=== PATIENT | male | born 1960 | race Caucasian/White ===

== ENCOUNTER 2019-08-23 19:13 | Inpatient (IN) | payer OTHER, SELFPAY ==
[~2019-08-23] VITALS: Ht 170.2 cm; Wt 81.6 kg
[2019-08-23 19:15] VITALS: BP_SYST 211
--- NOTE | 2019-08-23 19:15 | NUR ---
Patient to ER bed 8 to gown for evaluation. Side rails up. ASSUMED CARE OF PT.
--- NOTE | 2019-08-23 19:15 | NUR ---
PT BIB FOR SOB FOR ONE WEKK BUT IT BECAME WORSE TODAY FOR 30 MANAGEMENT RECRUITER. PT ALSO C/O BILATERAL LOWER EXT EDEMA THAT STARTED ONE WEEK AGO WELL. PT IS AAO AND AMBULATORY. PT SPEAKING IN CLEAR SENTENCES WITHOUT ACCESSARY MUSCLE USE.
--- NOTE | 2019-08-23 21:00 | NUR ---
ER Dr. HOWARD at bedside examining patient.
--- NOTE | 2019-08-23 21:01 | NUR ---
ER at bedside examining patient.
[2019-08-23] MEDS ORDERED: LABETALOL 100 MG/ 20ML VIAL IVP ONE (21:15)
[2019-08-23] MEDS ORDERED: NITROGLYCERIN 1 INCH (GM) OINT. TD ONE (21:15)
[2019-08-23] MEDS ORDERED: ASPIRIN 81 MG TAB.CHEW PO ONE (21:15)
[2019-08-23 22:11] LABS: BASOPHILS % (AUTO) 0.9 % (0.0-2.0); EOSINOPHILS # (AUTO) 0.1 K/uL (0.0-0.4); HEMOGLOBIN 10.7 g/dL (14.0-18.0); MEAN CORPUSCULAR HEMOGLOBIN 29 pg (27-31); MEAN CORPUSCULAR HGB CONC 33 % (32-36); MEAN CORPUSCULAR VOLUME 87 fL (79.0-98.0); MONOCYTES # (AUTO) 0.4 K/uL (0.0-1.0); WHITE BLOOD COUNT (AUTO) 5.4 K/uL (4.8-10.8)
[2019-08-23 22:16] LABS: EOSINOPHILS % (AUTO) 2.5 % (0.0-4.0); HEMATOCRIT 32.3 % (36-54); LYMPHOCYTES # (AUTO) 0.9 K/uL (1.0-5.5); LYMPHOCYTES % (AUTO) 16.5 % (20.5-51.5); MONOCYTES % (AUTO) 7.6 % (1.7-9.3); NEUTROPHILS # (AUTO) 3.9 K/uL (1.8-7.7); NEUTROPHILS % (AUTO) 72.5 % (40.0-70.0); PLATELET COUNT (AUTO) 203 K/uL (130-430); RED CELL DISTRIBUTION WIDTH 14.5 % (9.0-15.0)
[2019-08-23 22:17] LABS: CALCIUM 8.1 mg/dL (8.4-11.0); CREATININE 3.74 mg/dL (0.55-1.30)
[2019-08-23 22:20] LABS: PROTHROMBIN TIME 10.4 SECS (9.5-12.5)
[2019-08-23 22:22] LABS: BILIRUBIN,URINE NEGATIVE (NEGATIVE); BLOOD, URINE 2+ (NEGATIVE); CLARITY/URINE CLEAR (CLEAR); COLOR,URINE YELLOW (YELLOW); GLUCOSE,URINE 1+ (NEGATIVE); KETONES,URINE NEGATIVE (NEGATIVE); LEUKOCYTE ESTERASE ,URINE NEGATIVE (NEGATIVE); NITRITE, URINE NEGATIVE (NEGATIVE); PROTEIN URINE 3+ (NEGATIVE); UROBILINOGEN,URINE 0.2 (0.2-1.0)
[2019-08-23 22:23] LABS: ALBUMIN 2.3 g/dL (3.4-4.8); TOTAL BILIRUBIN 0.4 mg/dL (0.0-1.0)
--- NOTE | 2019-08-23 22:25 | NUR ---
PT RESTING QUIETLY AWAITING DISPOSITION.
[2019-08-23 22:34] LABS: BACTERIA,URINE FEW /HPF (None Seen); WBC,URINE 0-3 /HPF (0-3)
[2019-08-23] MEDS ORDERED: FUROSEMIDE 40 MG/4 ML VIAL IVP ONE (23:15)
[2019-08-23] MEDS ORDERED: CARVEDILOL 6.25 MG TABLET (COREG) PO ONE (23:15)
--- NOTE | 2019-08-23 23:47 | NUR ---
Patient will be admitted to [facility]. Admitted to TELE unit. Will go to room 118 B. Belongings list completed. Complete and up to date summary report printed. SBAR report to be given at bedside with opportunity for questions.
--- NOTE | 2019-08-24 00:09 | NUR ---
ADMISSION: The patient, FALLON ADAMS, 58 y/o, M admitted by CHAPO PARKER MD,with the diagnosis of CHF , to room 118 A , was given written information regarding hospital policies, unit procedures and contact persons.
[2019-08-24 00:12] VITALS: BP_SYST 169
--- NOTE | 2019-08-24 02:15 | NUR ---
NOVEL RODNEY VIRUS SWAB DONE BY ER NURSE AND TAKEN TO LAB.
--- NOTE | 2019-08-24 05:21 | NUR ---
CONSULTATION PAGED/CALLED Reason for Consultation: CHF Person Who was Notified: BHARATHI Consulting Physician: ANISH Cylinder Steamer Specialty: CARDIO Ordering Physician: KEITH
--- NOTE | 2019-08-24 05:31 | NUR ---
CONSULTATION PAGED/CALLED Reason for Consultation: ELEVATED CREATINE Person Who was Notified: BHARATHI Consulting Physician: MERRILL Tool And Die Maker Apprentice Specialty: Ordering Physician: KEITH
--- NOTE | 2019-08-24 07:26 | NUR ---
CLOSING NOTE PT RESTING IN NO ACUTE DISTRESS. CARE ENDORSED TO KIRBY FRANCISCO.
[2019-08-24 08:00] VITALS: BP_SYST 174
[2019-08-24] MEDS: FUROSEMIDE 40 MG/4 ML VIAL IVP SCH ×2 (08:27→20:30)
[2019-08-24] MEDS: CARVEDILOL 6.25 MG TABLET (COREG) PO SCH ×2 (08:27→20:30)
[2019-08-24] MEDS: cloNIDine HCL 0.1 MG TABLET PO PRN (08:27)
[2019-08-24] MEDS ORDERED: ASPIRIN 81 MG TAB.CHEW PO ONE (10:15)
--- NOTE | 2019-08-24 10:59 | NUR ---
DR PARKER HERE AND SEEN PT. PT EDUCATED ON 24 HOUR URINE COLLECTION. PT VERBALIZED UNDERSTANDING.
[2019-08-24 11:17] LABS: EOSINOPHILS # (AUTO) 0.1 K/uL (0.0-0.4); EOSINOPHILS % (AUTO) 2.1 % (0.0-4.0); HEMATOCRIT 27.4 % (36-54); LYMPHOCYTES # (AUTO) 0.9 K/uL (1.0-5.5); MEAN CORPUSCULAR HEMOGLOBIN 29 pg (27-31); MEAN CORPUSCULAR HGB CONC 33 % (32-36); MEAN CORPUSCULAR VOLUME 87 fL (79.0-98.0); MONOCYTES # (AUTO) 0.4 K/uL (0.0-1.0); MONOCYTES % (AUTO) 8.2 % (1.7-9.3); NEUTROPHILS # (AUTO) 3.4 K/uL (1.8-7.7); NEUTROPHILS % (AUTO) 69.7 % (40.0-70.0); PLATELET COUNT (AUTO) 164 K/uL (130-430); RED BLOOD CELL COUNT(AUTO) 3.15 MIL/uL (4.2-6.2); RED CELL DISTRIBUTION WIDTH 14.7 % (9.0-15.0); WHITE BLOOD COUNT (AUTO) 4.9 K/uL (4.8-10.8)
[2019-08-24 11:24] LABS: CALCIUM 7.7 mg/dL (8.4-11.0); CREATININE 3.78 mg/dL (0.55-1.30); POTASSIUM 4.7 mmol/L (3.5-5.1)
[2019-08-24 11:28] LABS: PHOSPHORUS 4.7 mg/dL (2.7-4.5)
[2019-08-24 11:30] VITALS: BP_SYST 144
[2019-08-24] MEDS ORDERED: ENOXAPARIN SODIUM 30 MG/0.3 ML SYRINGE SUBCUT ONE (12:30)
[2019-08-24 17:18] VITALS: BP_SYST 148
--- NOTE | 2019-08-24 18:50 | NUR ---
closing notes pt has been stable, bp now at 140's , no c/o pain. continued on 24 hour urine collection. will endorse night nurse
--- NOTE | 2019-08-24 19:30 | NUR ---
REPORT Report given by day nurse, patient is sinus rhythm in the monitor, 02 saturation of 95%
[2019-08-24 20:00] VITALS: BP_SYST 152
--- NOTE | 2019-08-24 21:00 | NUR ---
MED PASS Patient awake, sitting up in bed, aox4, no sob noted, on 02 2L NC, vital signs stable, patient denies any pain or discomfort at this time, IV line to left ac intact and patent, saline locked, patient's due medications administered, educated on use and side effects of each medication, patient verbalized understanding, plan of care also discussed. Patient has 24 hour urine collection ongoing, Patient educated on use of call light for nurse assistance, fall and safety measures in place, will monitor.
--- NOTE | 2019-08-24 22:43 | NUR ---
ROUNDS Patient resting quietly in bed, remains sinus rhythm in the heart monitor, 02 saturation of 99%.
[2019-08-25 00:16] VITALS: BP_SYST 144
--- NOTE | 2019-08-25 00:18 | NUR ---
ROUNDS Patient sitting up in bed, no sob noted, remains on 02 2L NC, vital signs stable, denies any pain or discomfort at this time, hs snack given, needs attended to, call light within reach, safety and fall precautions in place, will monitor.
--- NOTE | 2019-08-25 02:06 | NUR ---
ROUNDS Patient resting quietly in bed,remains on 02 2L NC, breathing even and unlabored, call light within reach, safety and isolation precautions in place, will monitor.
--- NOTE | 2019-08-25 04:06 | NUR ---
ROUNDS Patient continues to rest quietly in bed, remains on 02 2L NC, breathing even and unlabored, call light remains within reach, safety and isolation precautions in place.
--- NOTE | 2019-08-25 06:20 | NUR ---
CLOSING NOTE Patient awake, sitting up in bed, aox4, no sob noted, remains on 02 2L NC, vital signs stable, patient denies any pain or discomfort at this time, IV line to left ac intact and patent, saline locked, blood sugar check this am of 90, needs attended through out the shift, fall and safety measures maintained, will monitor until report given to am nurse.
[2019-08-25 07:27] LABS: BASOPHILS # (AUTO) 0.1 K/uL (0.0-0.2); BASOPHILS % (AUTO) 1.1 % (0.0-2.0); EOSINOPHILS # (AUTO) 0.2 K/uL (0.0-0.4); EOSINOPHILS % (AUTO) 3.1 % (0.0-4.0); HEMATOCRIT 28.6 % (36-54); HEMOGLOBIN 9.5 g/dL (14.0-18.0); LYMPHOCYTES # (AUTO) 1.3 K/uL (1.0-5.5); LYMPHOCYTES % (AUTO) 25.4 % (20.5-51.5); MEAN CORPUSCULAR HEMOGLOBIN 29 pg (27-31); MEAN CORPUSCULAR HGB CONC 33 % (32-36); MEAN CORPUSCULAR VOLUME 88 fL (79.0-98.0); MONOCYTES # (AUTO) 0.4 K/uL (0.0-1.0); MONOCYTES % (AUTO) 7.7 % (1.7-9.3); NEUTROPHILS # (AUTO) 3.1 K/uL (1.8-7.7); NEUTROPHILS % (AUTO) 62.7 % (40.0-70.0); PLATELET COUNT (AUTO) 176 K/uL (130-430); RED BLOOD CELL COUNT(AUTO) 3.25 MIL/uL (4.2-6.2); RED CELL DISTRIBUTION WIDTH 14.7 % (9.0-15.0)
[2019-08-25 08:15] VITALS: BP_SYST 155
[2019-08-25] MEDS: ASPIRIN 81 MG TAB.CHEW PO SCH (09:12)
[2019-08-25] MEDS: FUROSEMIDE 40 MG/4 ML VIAL IVP SCH ×2 (09:12→20:44)
[2019-08-25] MEDS: CARVEDILOL 6.25 MG TABLET (COREG) PO SCH ×2 (09:12→20:44)
[2019-08-25] MEDS: ENOXAPARIN SODIUM 30 MG/0.3 ML SYRINGE SUBCUT SCH (09:14)
[2019-08-25 09:45] LABS: ALBUMIN 2.1 g/dL (3.4-4.8); CALCIUM 7.6 mg/dL (8.4-11.0); CREATININE 4.12 mg/dL (0.55-1.30); POTASSIUM 5.6 mmol/L (3.5-5.1); TOTAL BILIRUBIN 0.4 mg/dL (0.0-1.0)
[2019-08-25] MEDS ORDERED: SODIUM POLYSTYRENE SULFONATE 15 GM/60 ML UDBTL PO ONE (10:15)
--- NOTE | 2019-08-25 10:15 | NUR ---
pt signed consent for u/s guided thoracentesis. asked pt if he wants me to inform/tell his , he said no.
[2019-08-25 10:54] LABS: FREE T4 (FREE THYROXINE) 1.4 ng/dL (0.6-1.6); THYROID STIMULATING HORMONE 3.2 uIu/mL (0.34-4.82)
--- NOTE | 2019-08-25 11:08 | NUR ---
24 hour urine collection and throacentesis sample sent to lab.
--- NOTE | 2019-08-25 11:08 | NUR ---
pt had u/s guided thora with dr brumfield, dion wnl. pt tolerated well.
[2019-08-25 11:10] VITALS: BP_SYST 133
--- NOTE | 2019-08-25 11:11 | NUR ---
left side thoracentesis site with band aid, dry and intact, no bleeding noted. xray taken.
--- NOTE | 2019-08-25 11:46 | NUR ---
pt given kayexalate as ordered for k level of 5.6. educated patient on the indication, and effects and side effects of kayexalate, pt verbalized understanding. pt stated he is feeling better after the thoracentesis.
--- NOTE | 2019-08-25 14:00 | NUR ---
pt in bed, resting. no c/o of pain. no sob. no bleeding from left back thoracentesis site.
[2019-08-25 14:26] LABS: BODY FLUID SOURCE/ TYPE PLEURAL; SOURCE/TYPE ,BODY FLUID THORACENTESIS
[2019-08-25 14:27] LABS: BF APPEARANCE UNSPUN CLOUDY (CLEAR); BODY FLUID COLOR YELLOW (LT YELLOW); BODY FLUID TOTAL VOLUME 1200 mL; RBC, BODY FLUID 1172 /uL; WBC, BODY FLUID 69 /uL
[2019-08-25 14:58] LABS: EOSINOPHIL, BODY FLUID 2 %; LYMPHOCYTES, BODY FLUID 37 %; NEUTROPHIL, BODY FLUID 31 %
[2019-08-25 15:49] VITALS: BP_SYST 134
[2019-08-25] MEDS ORDERED: NEPHROVITE, (FOLIC ACID/VITAMIN B COMP W-C 1 TAB) PO ONE (16:30)
[2019-08-25 17:14] LABS: BODY FLUID GLUCOSE 109 mg/dL; BODY FLUID TOTAL PROTEIN 0.9 g/dL
[2019-08-25 17:36] LABS: TOTAL IRON BIND. CAPACITY 260 ug/dL (250-450)
[2019-08-25 18:33] LABS: TPROTEIN U,24HR 3979.1 mg/24HR (0-130)
--- NOTE | 2019-08-25 18:49 | NUR ---
CLOSING NOTES, PATINET HAS BEEN STABLE THE WHOLE SHIFT, BP AT START OF SHIFT WAS ELEVATED AND LATER WHEN DOWN AFTER PT WAS GIVEN LASIX AND COREG. PT HAD L SIDE THORACENTESIS WITH 1 LI OUTPUT. 24 HOUR URINE COLLECTED COMPLETED AT 11 AM AND SAMPLE SENT TO LAB.
--- NOTE | 2019-08-25 19:20 | NUR ---
OPENING NOTE REPORT RECEIVED FROM DAYSHIFT NURSE. PATIENT RECEIVED SITTING UP IN BED, WATCHING TV, NO S/S OF ACUTE DISTRESS NOTED. HOB RAISED, BREATHING EVEN AND UNLABORED, PATIENT DENIES SOB, NASAL CANULA REMOVED AT THIS TIME, PATIENT DEMONSTRATED PROPER WAY OF APPLYING IF NEEDED. IV SITE IS PATENT, NO SIGNS OF INFILTRATION OR INFECTION NOTED. SKIN WARM AND DRY TO TOUCH. CALL LIGHT WITH PATIENT, DEMONSTRATED BACK PROPER WAY OF USE, ENCOURAGED TO CALL FOR ANY ASSISTANCE, PATIENT VERBALIZED UNDERSTANDING. BED IS LOCKED AND AT LOWEST POSITION. WILL CONTINUE TO MONITOR.
[2019-08-25 20:00] VITALS: BP_SYST 171
--- NOTE | 2019-08-25 21:00 | NUR ---
ROUNDS PATIENT IN BED RESTING. NO SIGNS OF DISCOMFORT NOTED. CHEST RISE AND FALL EVEN BILATERALLY. NO SOB. CALL LIGHT WITH PATIENT. WILL CONTINUE TO MONITOR.
--- NOTE | 2019-08-25 23:00 | NUR ---
ROUNDS PATIENT SLEEPING AT THIS TIME. NO S/S OF ACUTE DISTRESS NOTED. BREATHING EVEN AND UNLABORED. CALL LIGHT WITH PATIENT. WILL CONTINUE TO MONITOR.
[2019-08-26] VITALS: BP_SYST 156
--- NOTE | 2019-08-26 01:00 | NUR ---
ROUNDS PATIENT IN BED, SLEEPING. NO SIGNS OF DISCOMFORT NOTED. CHEST RISE AND FALL EVEN BILATERALLY. CALL LIGHT WITH PATIENT. WILL CONTINUE TO MONITOR.
--- NOTE | 2019-08-26 03:00 | NUR ---
ROUNDS PATIENT IN BED ASLEEP AT THIS TIME. NO S/S OF ACUTE DISTRESS NOTED. HOB RAISED. CALL LIGHT WITH PATIENT. WILL CONTINUE TO MONITOR.
--- NOTE | 2019-08-26 05:00 | NUR ---
ROUNDS PATIENT ASLEEP AT THIS TIME. NO SIGNS OF DISCOMFORT NOTED. CHEST RISE AND FALL EVEN BILATERALLY. HOB RAISED. CALL LIGHT WITH PATIENT. WILL CONTINUE TO MONITOR.
--- NOTE | 2019-08-26 07:06 | NUR ---
IV PULLED OUT/NEW IV INSERTED/CLOSING NOTES PATIENT ACCIDENTALLY PULLED OUT IV. CATHETER FULLY INTACT, NO ACTIVE BLEEDING NOTED. NEW IV INSERTED AT LEFT FOREARM, 20 GAUGE, PATIENT TOLERATED WELL, PATENT, NO SIGNS OF INFILTRATION NOTED. NO S/S OF ACUTE DISTRESS NOTED. BREATHING EVEN AND UNLABORED. ALL NEEDS MET THROUGHOUT SHIFT. FALL, SAFETY, AND ISOLATION PRECAUTIONS MAINTAINED THROUGHOUT SHIFT. WILL CONTINUE TO MONITOR UNTIL PATIENT CARE IS ENDORSED TO ONCOMING DAYSHIFT NURSE.
[2019-08-26 07:30] LABS: BASOPHILS # (AUTO) 0.1 K/uL (0.0-0.2); BASOPHILS % (AUTO) 1.2 % (0.0-2.0); EOSINOPHILS # (AUTO) 0.2 K/uL (0.0-0.4); EOSINOPHILS % (AUTO) 3.1 % (0.0-4.0); HEMATOCRIT 30.8 % (36-54); HEMOGLOBIN 10.1 g/dL (14.0-18.0); LYMPHOCYTES # (AUTO) 1.1 K/uL (1.0-5.5); LYMPHOCYTES % (AUTO) 21.8 % (20.5-51.5); MEAN CORPUSCULAR HEMOGLOBIN 28 pg (27-31); MEAN CORPUSCULAR HGB CONC 33 % (32-36); MEAN CORPUSCULAR VOLUME 87 fL (79.0-98.0); MONOCYTES # (AUTO) 0.5 K/uL (0.0-1.0); NEUTROPHILS # (AUTO) 3.3 K/uL (1.8-7.7); NEUTROPHILS % (AUTO) 64.9 % (40.0-70.0); PLATELET COUNT (AUTO) 188 K/uL (130-430); RED BLOOD CELL COUNT(AUTO) 3.54 MIL/uL (4.2-6.2); RED CELL DISTRIBUTION WIDTH 14.6 % (9.0-15.0); WHITE BLOOD COUNT (AUTO) 5.1 K/uL (4.8-10.8)
[2019-08-26 07:45] LABS: ALBUMIN 2.2 g/dL (3.4-4.8); CALCIUM 7.8 mg/dL (8.4-11.0); CREATININE 4.14 mg/dL (0.55-1.30); POTASSIUM 4.8 mmol/L (3.5-5.1); TOTAL BILIRUBIN 0.3 mg/dL (0.0-1.0)
--- NOTE | 2019-08-26 08:00 | NUR ---
Initial notes: Patient is alert and oriented, he is not in any kind of distress and he denies pain at this time. He took all of his PO meds without difficulty. He ambulates to the restroom w/ a steady gait. His covid test came back negative, will call to ask if he wants to repeat test or clear patient from isolation. Got full report from extracorporeal circulation specialist nurse. Bed is low, 2 side rails are up and call light is within reach. Staecy ORR
[2019-08-26 09:09] VITALS: BP_SYST 151
--- NOTE | 2019-08-26 09:35 | NUR ---
PAGED PAGED EMETERIO STOKES AT [phone]PHAM ESQUIVEL SHERI COMPLIANCE TESTING ANALYST.
[2019-08-26] MEDS: CARVEDILOL 6.25 MG TABLET (COREG) PO SCH (09:36)
[2019-08-26] MEDS: FUROSEMIDE 40 MG/4 ML VIAL IVP SCH ×2 (09:36→20:27)
[2019-08-26] MEDS: ASPIRIN 81 MG TAB.CHEW PO SCH (09:36)
[2019-08-26] MEDS: NEPHROVITE, (FOLIC ACID/VITAMIN B COMP W-C 1 TAB) PO SCH (09:37)
--- NOTE | 2019-08-26 10:06 | NUR ---
did not want to repeat the covid test again, patient will be taken off isolation. Patient is doing well, he ate all of his breakfast. He does not present any new complaints at this time. Bed is low, 2 side rails are up and call light is within reach. Stacey ORR
[2019-08-26] MEDS: ENOXAPARIN SODIUM 30 MG/0.3 ML SYRINGE SUBCUT SCH (10:19)
[2019-08-26] MEDS ORDERED: TUBERCULIN,PURIF.PROT.DERIV. 0.1 ML SYR ID ONE (10:45)
--- NOTE | 2019-08-26 10:52 | NUR ---
CONSULT SURGERY TUNNELED CATHETER PLACEMENT CAROLINA MILLER [phone] S/W CURTIS GRUBER
--- NOTE | 2019-08-26 12:10 | NUR ---
Patient is eating his meal, he does not present any complaints and he denies any pain at this time. Bed is low, 2 side rails are up and call light is within reach. Stacey ORR
[2019-08-26 12:15] LABS: CALCIUM 7.9 mg/dL (8.4-11.0); CREATININE 4.09 mg/dL (0.55-1.30); POTASSIUM 4.5 mmol/L (3.5-5.1)
--- NOTE | 2019-08-26 14:10 | NUR ---
PPD was given on his RFA, will endorse to nurse to have it rechecked in 2 days.
--- NOTE | 2019-08-26 14:50 | NUR ---
opening note received bedside sbar from RN, patient in bed, alert, oriented, respirations even, non labored, bed in low and locked position, call light within reach
[2019-08-26 15:21] VITALS: BP_SYST 146
--- NOTE | 2019-08-26 15:40 | NUR ---
MD ROUNDS OH BEDSIDE EXAMINING PATIENT
[2019-08-26 16:00] VITALS: BP_SYST 171
[2019-08-26] MEDS: cloNIDine HCL 0.1 MG TABLET PO PRN (16:14)
--- NOTE | 2019-08-26 16:20 | NUR ---
MRSA MRSA BILATERAL NARES SWAB
--- NOTE | 2019-08-26 19:00 | NUR ---
closing notes beside sbar given to night RN, patient in bed watching TV, respirations even, non labored, call light within reach, bed in low and locked position, endorsed care to night RN
--- NOTE | 2019-08-26 19:30 | NUR ---
Opening Notes Patient is sitting up in bed. No signs if distress noted, breathing is even and unlabored. Patient is on room air and tolerating well. Patient gets up to restroom and is steady on his feet. IV to the left forearm 20G is patent and saline locked at this time. Patient does not have any needs at this time. Bed is locked in the lowest position with call light within reach. Side rails up X 2.
[2019-08-26 20:00] VITALS: BP_SYST 177
[2019-08-26] MEDS: CARVEDILOL 25 MG TABLET (COREG) PO SCH (20:28)
--- NOTE | 2019-08-26 20:35 | NUR ---
Medications Administered scheduled medications at this time. Patient tolerated well. Educated patient on action and side effects of medications. Educated patient to dangle his feet before standing as meds could make him dizzy. Also Educated patient that after midnight he could not not have food or fluids. Patient verbalized an understanding. Accu check was completed at this time, blood sugar was 153. No insulin coverage ordered at this time. No other needs at this time. Bed is locked in the lowest position with call light within reach.
--- NOTE | 2019-08-26 23:00 | NUR ---
RN Rounds Patient is resting in bed at this time. No signs of distress noted, breathing is even and unlabored. Patient does not have any needs at this time. Call light is within reach. Bed is locked in the lowest position. Side rails up X 2.
[2019-08-27] VITALS (7 sets, daily range): BP systolic 143–188
--- NOTE | 2019-08-27 02:00 | NUR ---
RN Rounds/Medications Patient is resting in bed with his eyes closed. No signs of distress noted, breathing is even and unlabored. Vital signs were taken at this time, BP was 163/104, administered PRN BP medication. Patient used the restroom, steady on his feet, back to bed safely. Call light is within reach. Bed is locked in the lowest position. Side rails up X 2.
[2019-08-27] MEDS: cloNIDine HCL 0.1 MG TABLET PO PRN (02:05)
--- NOTE | 2019-08-27 04:00 | NUR ---
RN Rounds Patient is resting in bed with eyes closed. No signs of distress noted, breathing is even and unlabored. Patient does not have any needs at this time. Call light is within reach. Bed is locked in the lowest position. Side rails up X 2.
--- NOTE | 2019-08-27 06:45 | NUR ---
Closing Notes patient is sitting in bed. States he is feeling anxious for the procedure. IV to the left forearm 20G is patent and saline locked. Patient completed CHG bath at this time. Vital signs were checked and current BP is 188/119, Dr. Grey is being paged for possible new orders before surgery. Will continue to monitor and endorse to dayshift RN. Patient is BRP and steady on his feet. Patient has been NPO since midnight. All needs met throughout shift. Bed is locked in the lowest position with call light within reach. Will endorse care to dayshift RN
--- NOTE | 2019-08-27 06:57 | NUR ---
MD MEDELLIN PAGED CAROLINA CHASE AT [phone] SPOKE WITH ARLEN.
[2019-08-27 07:36] LABS: BASOPHILS % (AUTO) 0.8 % (0.0-2.0); EOSINOPHILS # (AUTO) 0.1 K/uL (0.0-0.4); EOSINOPHILS % (AUTO) 2.5 % (0.0-4.0); HEMATOCRIT 31.4 % (36-54); HEMOGLOBIN 10.3 g/dL (14.0-18.0); LYMPHOCYTES # (AUTO) 1.2 K/uL (1.0-5.5); LYMPHOCYTES % (AUTO) 21.8 % (20.5-51.5); MEAN CORPUSCULAR HEMOGLOBIN 28 pg (27-31); MEAN CORPUSCULAR HGB CONC 33 % (32-36); MEAN CORPUSCULAR VOLUME 86 fL (79.0-98.0); MONOCYTES # (AUTO) 0.4 K/uL (0.0-1.0); MONOCYTES % (AUTO) 8.4 % (1.7-9.3); NEUTROPHILS # (AUTO) 3.5 K/uL (1.8-7.7); NEUTROPHILS % (AUTO) 66.5 % (40.0-70.0); PLATELET COUNT (AUTO) 187 K/uL (130-430); RED BLOOD CELL COUNT(AUTO) 3.63 MIL/uL (4.2-6.2); RED CELL DISTRIBUTION WIDTH 14.6 % (9.0-15.0); WHITE BLOOD COUNT (AUTO) 5.3 K/uL (4.8-10.8)
--- NOTE | 2019-08-27 07:40 | NUR ---
OPENING NOTE Patient resting in the bed. No acute distress. AAO x 4. Denied of pain. Skin warm and dry to touch. SL intact to LFA, no redness, no swelling, patent. Discussed the safety issue, use call light when needs help, and plan of care, verbally understanding. Safety measure maintained. Bed locked in low position, side rails up. Refused bed alarm, risk and benefit explained, verbally understanding. Will continue to monitor.
[2019-08-27] MEDS ORDERED: hydrALAZINE HCL 20 MG/ML VIAL IVP ONE (07:45)
[2019-08-27 07:46] LABS: ALBUMIN 2.2 g/dL (3.4-4.8); CREATININE 4.36 mg/dL (0.55-1.30); PHOSPHORUS 5.2 mg/dL (2.7-4.5); POTASSIUM 4.5 mmol/L (3.5-5.1); TOTAL BILIRUBIN 0.4 mg/dL (0.0-1.0)
--- NOTE | 2019-08-27 07:47 | NUR ---
XM=059/120 Called to OR, reported to Veda ORR regarding the patient's XR=656/120, P=80. Transferred to Niranjan Leo with the order of Hydrazine HCL 20mg IVP x 1. Order read back and ok to .
[2019-08-27] MEDS ORDERED: ONDANSETRON HCL 4 MG/2 ML VIAL IVP PRN ×2 (08:00→10:00)
[2019-08-27] MEDS ORDERED: fentaNYL CITRATE/PF 100 MCG/2 ML AMP IVP PRN ×2 (08:00)
--- NOTE | 2019-08-27 08:10 | NUR ---
OFF UNIT TO SURGERY Helped OR nurse to transport the patient to OR via bed. Hydrazine 20mg IVP gave prior transport.
[2019-08-27] MEDS: ASPIRIN 81 MG TAB.CHEW PO SCH (09:00)
[2019-08-27] MEDS: ENOXAPARIN SODIUM 30 MG/0.3 ML SYRINGE SUBCUT SCH (09:00)
[2019-08-27] MEDS ORDERED: hydrALAZINE HCL 25 MG TABLET PO ONE (09:00)
[2019-08-27] MEDS ORDERED: HYDROcodone/ACETAMIN 5-325 MG TAB (NORCO/ VICODIN) PO PRN (10:00)
[2019-08-27] MEDS ORDERED: MORPHINE SULFATE 10 MG/ML VIAL IVP PRN (10:00)
[2019-08-27] MEDS ORDERED: HYDROmorphone 2 MG/ML VIAL IVP PRN (10:00)
[2019-08-27 10:09] LABS: FREE PSA 0.56 ng/mL; PROSTATE SPECIFIC AG TOTAL 1.6 ng/mL (0.0-4.0)
--- NOTE | 2019-08-27 11:16 | NUR ---
BACK TO UNIT FROM OR Report received from SIDE STITCHER at bedside. Patient resting in the bed. No acute distress. On O2 2L/min via NC. AAO x 4. Denied of pain. Skin warm and dry to touch. SL intact to LFA, no redness, no swelling, patent. Perma cath intact to right upper chest, covered with clean and dry dressing, no bleeding note. 5lb sand bag applied to the site. SCD intact to bilateral lower extremities. Safety measure maintained. Call light within reached. Bed locked in low position, side rails up. Will continue to monitor.
[2019-08-27] MEDS: FUROSEMIDE 40 MG/4 ML VIAL IVP SCH ×2 (11:43→20:42)
[2019-08-27] MEDS: NEPHROVITE, (FOLIC ACID/VITAMIN B COMP W-C 1 TAB) PO SCH (11:44)
[2019-08-27] MEDS: CARVEDILOL 25 MG TABLET (COREG) PO SCH ×2 (11:45→20:50)
[2019-08-27 12:09] LABS: HEPATITIS A AB, IgM Negative (Negative); HEPATITIS B CORE AB, IgM Negative (Negative); HEPATITIS B SURFACE AG Negative (Negative); HEPATITIS C VIRUS AB <0.1 s/co ratio (0.0-0.9)
--- NOTE | 2019-08-27 12:09 | NUR ---
HELD ASPIRIN AND LOVENOX Noted the new perma cath site with small amount of bleeding when the patient used the hand to hold a cup of water. Instructed patient not to use right hand today, use left hand when eating. Do not remove the sand bag, verbally understanding. Lauren Lyon in the unit and informed Aspirin and Lovenox held and the hemodialysis nurse will come today.
--- NOTE | 2019-08-27 13:25 | NUR ---
INITIAL HEMODIALYSIS STARTED Patient signed the hemodialysis consent prior starting hemodialysis. Patient no acute distress. Safety measure maintained. Call light within reached. Continue to monitor.
--- NOTE | 2019-08-27 14:30 | NUR ---
ONGOING HEMODIALYSIS Patient resting in the bed. No acute distress. Continue on hemodialysis, tolerated well. Dialysis nurse at bedside. Call light within reached. Continue to monitor.
[2019-08-27] MEDS ORDERED: HEPARIN SODIUM,PORCINE 5000 UNITS/ML VIAL SUBCUT ONE (15:30)
--- NOTE | 2019-08-27 16:17 | NUR ---
SEEN AND EXAMINED BY CHAPO CABALLERO WITH ORDER RECEIVED.
--- NOTE | 2019-08-27 17:59 | NUR ---
OO=[address] Bennett's exchange regarding UT=091 but no coverage order. Left message to Manny and waited Dr. Bennett to call back.
--- NOTE | 2019-08-27 18:08 | NUR ---
RECEIVED THE CALL BACK FROM DR. PARKER [facility] Reported to Dr. Parker, patient's JL=[id number] and no insulin coverage ordered. Per Dr. Parker, the patient's BS used to be low, just monitor. Reported to Dr. Parker, the patient on renal diet, Dr. Parker with order change to [facility] diet, order read back and ok to .
--- NOTE | 2019-08-27 18:45 | NUR ---
CLOSING NOTE Patient resting in the bed. No acute distress. Denied of pain. Skin warm and dry to touch. SL intact to LFA, no redness, no swelling, patent. [place] cath intact to right upper chest, no active bleeding noted at this time, covered with clean and dry dressing. All needs met. Safety measure maintained. Bed locked in low position, side rails up. Refused bed alarm, risk and benefit explained, verbally understanding. Will endorse to night nurse.
--- NOTE | 2019-08-27 20:00 | NUR ---
1909- received pt. awake on bed; alert and oriented x 4; on nasal cannula 2L/min noted; on carb controlled diet as ordered; with right chest wall permacath in place with 1.6 L hemodialysis output noted from previous shift; on glucose monitoring every ac and hs but no insulin sliding scale coverage observed; siderails x 2 are up; bed alarem is on; call light is within reach; awaiting for TB skin test reading done on right forearm to be read tomorrow 2053- blood glucose- 230 mg/dl noted; 2109- paged dr. ronn donald re: blood sugar- 230 mg/dl ; awaiting for md callback 2113- talked to dr. donald over the phone re: blood sugar- 230 mg/dl and said no insulin coverage for blood sugar- 230 mg/dl
[2019-08-27] MEDS: hydrALAZINE HCL 25 MG TABLET PO SCH (20:40)
[2019-08-28 00:29] VITALS: BP_SYST 140; BP_SYST 142
--- NOTE | 2019-08-28 06:15 | NUR ---
0615-blood sugar- 151 mg/dl noted; no insulin coverage needed
[2019-08-28 07:31] LABS: BASOPHILS % (AUTO) 0.3 % (0.0-2.0); HEMATOCRIT 32.3 % (36-54); HEMOGLOBIN 10.8 g/dL (14.0-18.0); LYMPHOCYTES # (AUTO) 0.7 K/uL (1.0-5.5); MEAN CORPUSCULAR HEMOGLOBIN 29 pg (27-31); MEAN CORPUSCULAR HGB CONC 33 % (32-36); MEAN CORPUSCULAR VOLUME 87 fL (79.0-98.0); MONOCYTES # (AUTO) 0.7 K/uL (0.0-1.0); MONOCYTES % (AUTO) 8.1 % (1.7-9.3); NEUTROPHILS # (AUTO) 6.9 K/uL (1.8-7.7); NEUTROPHILS % (AUTO) 83.6 % (40.0-70.0); PLATELET COUNT (AUTO) 189 K/uL (130-430); RED BLOOD CELL COUNT(AUTO) 3.74 MIL/uL (4.2-6.2); RED CELL DISTRIBUTION WIDTH 14.6 % (9.0-15.0); WHITE BLOOD COUNT (AUTO) 8.3 K/uL (4.8-10.8)
[2019-08-28 07:35] LABS: CALCIUM 7.8 mg/dL (8.4-11.0); CREATININE 3.8 mg/dL (0.55-1.30); POTASSIUM 3.8 mmol/L (3.5-5.1)
[2019-08-28 08:00] VITALS: BP_SYST 140
--- NOTE | 2019-08-28 08:00 | NUR ---
initial notes rec patient awake alert with hob elevated.ivl in place. resp easy and unlabored. bed to the lowest position and side rails up and locked. call light within reached. will continue to monitor patient.
[2019-08-28] MEDS: ASPIRIN 81 MG TAB.CHEW PO SCH (09:13)
[2019-08-28] MEDS: FUROSEMIDE 40 MG/4 ML VIAL IVP SCH (09:13)
[2019-08-28] MEDS: NEPHROVITE, (FOLIC ACID/VITAMIN B COMP W-C 1 TAB) PO SCH (09:14)
[2019-08-28] MEDS: hydrALAZINE HCL 25 MG TABLET PO SCH (09:14)
[2019-08-28] MEDS: CARVEDILOL 25 MG TABLET (COREG) PO SCH (09:16)
--- NOTE | 2019-08-28 10:00 | NUR ---
rounds seen by dr tomlinson and stated can be d/cd after seen by dr donald. due meds given and dimitry well.
--- NOTE | 2019-08-28 11:30 | NUR ---
Discharge Planning: ARJUN [facility] (p [phone]) patient has Chair time 2:30pm-6:30pm Ronit Wilson, Sat at [address] [place] [address]. ARJUN made CM aware.
[2019-08-28 12:00] VITALS: BP_SYST 149
--- NOTE | 2019-08-28 12:30 | NUR ---
rounds no hypo hyperglycemic reaction noted. resting comfortably.
--- NOTE | 2019-08-28 13:05 | NUR ---
Dietitian Recommendations *Recommend: [facility] Renal Standard diet. Please see Nutritional Assessment for details. BAKARI, ABHIJIT
[2019-08-28] MEDS ORDERED: HYDR-4038 PO (14:04)
[2019-08-28] MEDS ORDERED: COR25 PO (14:04)
[2019-08-28] MEDS ORDERED: ASA81 PO (14:04)
[2019-08-28] MEDS ORDERED: FURO-149 PO (14:04)
[2019-08-28] MEDS ORDERED: NEPH PO (14:04)
[2019-08-28 14:53] VITALS: BP_SYST 149
--- NOTE | 2019-08-28 15:30 | NUR ---
closing notes pt was discahrged after seen by dr donald. rimma at bedside and talk to patient follow up to pcp assigned on her insurance. perma cath site with small amount of blood ozing and dressing chnaged for the 2nd time. hemostat applied on the site and voverd with 2x2 and opsite. advised patient to observe for bleeding and to apply ice pack on the area. escorted and ambulated outside. refused the wheelchair. instructed re e prescription med to parts picker at [facility] and for his scheduled dialyis lyle with [facility]. stable needs attended. no sob noted.
--- NOTE | 2019-08-29 12:09 | NUR ---
Discharge Follow Up Phone Call Phoned patient, , and spoke with patient's , Pat. They were preparing to go to patient's first day of dialysis today. Patient is in good spirits. Discussed services available through the dialysis center, including a a r collections rep and social service manager. Patient does not have a PCP. Discussed how to find one under insurance. Also reminded her that a follow up appointment should also be made with a home service director. No other questions or concerns.
== END 2019-08-28 15:40 | disposition home or self-care (01) | DRG 291 ==
LOC: SED 19:13 → STU 23:16
PROVIDERS: ADMIT Internal Medicine; ATTEND Internal Medicine
PROC: 0W9B3ZZ Drainage of Left Pleural Cavity, Percutaneous Approach (ICD-10-PCS; principal; 2019-08-25)
PROC: 0JH63XZ Insertion of Tunneled Vascular Access Device into Chest Subcutaneous Tissue and Fascia, Percutaneous Approach (ICD-10-PCS; 2019-08-27)
PROC: 02HV33Z Insertion of Infusion Device into Superior Vena Cava, Percutaneous Approach (ICD-10-PCS; 2019-08-27)
PROC: B548ZZA Ultrasonography of Superior Vena Cava, Guidance (ICD-10-PCS; 2019-08-27)
PROC: 5A1D70Z Performance of Urinary Filtration, Intermittent, Less than 6 Hours Per Day (ICD-10-PCS; 2019-08-27)
DX: I13.2 Hypertensive heart and chronic kidney disease with heart failure and with stage 5 chronic kidney disease, or end stage renal disease (principal); N17.0 Acute kidney failure with tubular necrosis; E43 Unspecified severe protein-calorie malnutrition; I50.41 Acute combined systolic (congestive) and diastolic (congestive) heart failure; N18.6 End stage renal disease; I42.9 Cardiomyopathy, unspecified; E11.319 Type 2 diabetes mellitus with unspecified diabetic retinopathy without macular edema; D63.1 Anemia in chronic kidney disease; E11.22 Type 2 diabetes mellitus with diabetic chronic kidney disease; Z87.891 Personal history of nicotine dependence; Z68.28 Body mass index [BMI] 28.0-28.9, adult
CPT/HCPCS: 32555; 36415; 71045; 76000; 80048; 80053; 80061; 80074; 81000-TC; 82306; 82607; 82947-TC; 82962; 83036; 83540-TC; 83550-TC; 83880; 84100-TC; 84153; 84156; 84157-TC; 84439; 84443-TC; 84484; 85025; 85610-TC; 85730-TC; 86580; 86706; 86803; 86886; 86900; 86901; 87070-TC; 87081; 87116; 87340; 88108; 88305; 89051-TC; 89060-TC; 90935; 93005; 93306; 96374; 96375; 99285; C1729; G0378; J0360; J1644; J1650; J1940; J3490; J7030; U0002; U0003-CS